=== PATIENT | male | born 1985 | race Hispanic/Latino ===

== ENCOUNTER 2017-02-22 23:38 | Inpatient (IN) | payer MEDICAID, OTHER ==
--- NOTE | 2017-02-22 23:49 | C.PDOC ---
History Of Present Illness A 31 y/o male presents to the ER for heroin detox. Pt notes last use couple hours ago. Pt denies suicidal or homicidal ideation, fever, chills, nausea, vomiting, or any other complaints. Time Seen by Provider: 02/22/17 23:49 Chief Complaint (Nursing): Substance Abuse History Per: Patient History/Exam Limitations: no limitations Onset/Duration Of Symptoms: Hrs Current Symptoms Are (Timing): Still Present Suicide/Self Injury Attempted (Context): None Modifying Factor(s): Other (Heroin) Severity: Mild Associated Symptoms: denies: Suicidal Thoughts, Suicidal Plan Involuntary Hold By: None Recent travel outside of the [place]: No Additional History Per: Patient Past Medical History Reviewed: Historical Data, Nursing Documentation, Vital Signs Vital Signs: Last Vital Signs Temp 98.2 F 02/22/17 23:43 Pulse 84 02/22/17 23:43 Resp 18 02/22/17 23:43 BP 130/86 02/22/17 23:43 Pulse Ox 98 02/22/17 23:54 - Medical History PMH: Denies: Diabetes, Hepatitis, HIV, HTN, Seizures, Sexually Transmitted Disease - [facility] Procedures DETOXIFICATION SERVICES FOR SUBSTANCE ABUSE TREATMENT (09/18/15) Family History: States: Unknown Family Hx - Social History Hx Alcohol Use: Yes Hx Substance Use: Yes - Immunization History Hx Tetanus Toxoid Vaccination: No Hx Influenza Vaccination: No Hx Pneumococcal Vaccination: No Review Of Systems Except As Marked, All Systems Reviewed And Found Negative. Constitutional: Negative for: Fever, Chills Gastrointestinal: Negative for: Nausea, Vomiting Psych: Negative for: Suicidal ideation, Other (Homicidal ideation) Physical Exam - Physical Exam Appears: Non-toxic, No Acute Distress Skin: Warm, Dry Head: Atraumatic, Normacephalic Eye(s): bilateral: Normal Inspection Chest: Symmetrical Cardiovascular: Rhythm Regular Respiratory: No Rales, No Rhonchi, No Wheezing Gastrointestinal/Abdominal: Soft, No Tenderness Extremity: Normal ROM, Capillary Refill (<2sec), No Deformity, No Swelling Neurological/Psych: Oriented x3, Normal Speech, Normal Cognition, Other (No focal deficit) ED Course And Treatment O2 Sat by Pulse Oximetry: 98 (RA) Pulse Ox Interpretation: Normal Disposition Discussed With : Anushka Soria Comment: accepted the pt on his service and took over the care at 2:48 AM Doctor Will See Patient In The: Hospital Counseled Patient/Family Regarding: Studies Performed, Diagnosis - Disposition Disposition: HOSPITALIZED Disposition Time: 23:49 Condition: FAIR - POA Present On Arrival: None - Clinical Impression Clinical Impression: Drug abuse, Drug dependence - Scribe Statement The provider has reviewed the documentation as recorded by the Scribe Navdeep [email or web address] All medical record entries made by the Scribe were at my direction and personally dictated by me. I have reviewed the chart and agree that the record accurately reflects my personal performance of the history, physical exam, medical decision making, and the department course for this patient. I have also personally directed, reviewed, and agree with the discharge instructions and disposition. Decision To Admit - Pt Status Changed To: Hospital Disposition Of: Inpatient - Admit Certification Admit to Inpatient:: After my assessment, the patient will require hospitalization for at least two midnights. This is because of the severity of symptoms shown, intensity of services needed, and/or the medical risk in this patient being treated as an outpatient. - InPatient: Physician Admission Certification: I certify that this patient requires 2 or more midnights of care for the following reason:: After my assessment, the patient will require hospitalization for at least two midnights. This is because of the severity of symptoms shown, intensity of services needed, and/or the medical risk in this patient being treated as an outpatient. - . Bed Request Type: Detox Admitting Physician: Anushka Soria Patient Diagnosis: Drug abuse, Drug dependence
[2017-02-23 01:54] LABS: RBC URINE 1 /hpf (0-3); URINE BILIRUBIN NEGATIVE (NEGATIVE); URINE BLOOD NEGATIVE (NEGATIVE); URINE COLOR Amber (YELLOW); URINE GLUCOSE (UA) NORMAL (Normal); URINE HYALINE CAST 0-2 /lpf (0-2); URINE KETONE TRACE mg/dL (NEGATIVE); URINE LEUKOCYTE ESTERASE NEG Leu/uL (Negative); URINE PROTEIN NEGATIVE (NEGATIVE); WBC URINE 1 /hpf (0-5)
[2017-02-23 02:23] LABS: CHLORIDE 96 mmol/L (98-107)
[2017-02-23 02:24] LABS: POTASSIUM 3.8 mmol/L (3.6-5.2); SODIUM 138 mmol/L (132-148)
[2017-02-23 02:26] LABS: ALB/GLOB RATIO 1.5 (1.0-2.1); ALKALINE PHOSPHATASE 80 U/L (38-126); ALT/SGPT 67 U/L (21-72); AST/SGOT 39 U/L (17-59); BILIRUBIN,TOTAL 0.6 mg/dL (0.2-1.3); BLOOD UREA NITROGEN 15 mg/dL (9-20); CARBON DIOXIDE 26 mmol/L (22-30); GFR AFRICAN-AMERICAN > 60; GLUCOSE,RANDOM 103 mg/dL (75-110); TOTAL PROTEIN 8.2 g/dL (6.3-8.3)
[2017-02-23 02:27] LABS: CALCIUM 9.4 mg/dl (8.6-10.4)
[2017-02-23 08:00] LABS: BASO # 0.1 K/uL (0.0-0.2); BASO % 0.8 % (0.0-2.0); EOS # 0.2 K/uL (0.0-0.7); EOS % 3.5 % (0.0-4.0); HEMATOCRIT 37.7 % (35.0-51.0); LYMPH # 1.9 K/uL (1.0-4.3); LYMPH % 29.9 % (20.0-40.0); MEAN CELL VOLUME 88.2 fL (80.0-94.0); MEAN CORPUSCULAR HEMOGLOBIN 29.8 pg (27.0-31.0); MEAN CORPUSCULAR HGB CONC 33.8 g/dL (33.0-37.0); MEAN PLATELET VOLUME 7.5 fL (7.2-11.7); MONO # 0.5 K/uL (0.0-0.8); MONO % 7.9 % (0.0-10.0); WHITE BLOOD COUNT 6.4 K/uL (4.8-10.8)
[2017-02-23 08:10] LABS: ALCOHOL SERUM < 10 mg/dl (0-10)
[2017-02-23] MEDS ORDERED: Aluminum Hydroxide/Magnesium Hydroxide Susp (30 mL) PO PRN (10:17)
[2017-02-23] MEDS: Multiple Vitamins Tab PO SCH (12:26)
--- NOTE | 2017-02-23 15:23 | PCM.PSYCH ---
Initial Psychiatric Evaluation - Initial Psychiatric Evaluation Type of Admission: Voluntary Legal Status: Capacity Chief Complaint (in patient's own words): "I'm in bad shape. Withdrawing" History of Present Illness and Precipitating Events: The pt is seen, chart reviewed, case discussed with staff. Patient is 31 male. 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 Does not have children and denies legal issues. Patient reports that she has been using heroin, began 10-15 years ago, last used before admitted, and averages 20 bags per day intravenously. Patient uses cocaine, began 10 years ago, last used yesterday, averages $20 a day intravenously. Patient admits to using marijuana, first used years ago, last used a couple of days ago, averages a dime bag every other day. Patient admits to drinking alcohol, began 10 years ago, last drank yesterday, averages 1 pint per day. Denies mushroom, LSD, PCP, any other drugs. Smokes 1 cigarette pack per day since he was 12 years old and requests a nicotine patch. Longest sobriety was for 2 years, and this was about 5 years ago. Denies history of overdose, DT, liver disease. Attended detox at [facility] a couple years ago for 7 days. Patient attended rehab at [facility] in [place] 3 months ago for 2 weeks. Denies ever seeing a psychiatrist in the past. Patient is currently feeling tired and was not able to sleep well and has a poor appetite. Patient denies suicidal and homicidal ideation, auditory and visual hallucinations, paranoid thoughts. Plans after discharge include sober living in [place]. PMH: Denies. Medications: Denies. Allergies: NKDA Psychiatric Hx: Denies. Psychiatric Hospitalization: Denies. Family Psychiatric Hx: Denies. Family Drug Abuse Hx: Denies. Time: 35 minutes Current Medications: Active Medications Generic Name Dose Route Start Last Admin Trade Name Freq PRN Reason Stop Dose Admin Al Hydrox/Mg Hydrox/Simethicone 30 ml 02/23/17 10:17 Maalox 30 Ml PO TID PRN Indigestion / Heartburn Chlordiazepoxide 25 mg 02/23/17 12:00 02/23/17 12:26 Librium PO 02/27/17 11:59 25 mg Q6 JULI Administration Taper Chlordiazepoxide 25 mg 05/17/17 06:38 Librium PO Q4H PRN Alcohol Withdrawal Clonidine HCl 0.1 mg 02/23/17 10:17 Catapres PO Q8 PRN COWS Score More or Equal to 5 Folic Acid 1 mg 02/23/17 10:30 02/23/17 12:26 Folic Acid PO 1 mg DAILY JULI Administration Hydroxyzine HCl 50 mg 02/23/17 10:15 Atarax PO Q6H PRN Anxiety Ibuprofen 600 mg 02/23/17 10:15 Motrin Tab PO Q6H PRN Pain, moderate (4-7) Loperamide HCl 2 mg 02/23/17 10:17 Imodium PO Q8 PRN Diarrhea Multivitamins 1 tab 02/23/17 10:30 02/23/17 12:26 Hexavitamin PO 1 tab DAILY JULI Administration Nicotine 1 patch 02/23/17 10:15 02/23/17 12:26 Nicoderm Cq TD 1 patch DAILY JULI Administration Ondansetron HCl 4 mg 02/23/17 10:17 Zofran Tab PO Q8 PRN Nausea/Vomiting Pneumococcal Polyvalent Vaccine 0.5 ml 02/25/17 10:00 Pneumovax 23 Vaccine IM 02/25/17 10:01 .ONCE ONE Thiamine HCl 100 mg 02/23/17 10:30 02/23/17 12:26 Vitamin B1 Tab PO 100 mg DAILY JULI Administration Trazodone HCl 100 mg 02/23/17 22:00 Desyrel PO HS PRN Insomnia Past Psychiatric History - Past Psychiatric History Previous Treatment History: None Pertinent Medical Hx (Current Medical&Sleep Prob, Allergies): Allergies Allergy/AdvReac Type Severity Reaction Status Date / Time No Known Allergies Allergy Unverified 02/22/17 23:43 No Known Home Med 02/22/17 Review of Systems - Neurological Neurological: UNREMARKABLE - Psychiatric Psychiatric: Abnormal Sleep Pattern, Anxiety, Change in Appetite. absent: Auditory Hallucinations, Hallucinations, Homicidal Ideation, Paranoia, Suicidal Ideation, Visual Hallucinations Mental Status Examination - Personal Presentation Personal Presentation: Looks younger than stated age - Affect Affect: Constricted - Motor Activity Motor Activity: Psychomotor Agitation - Reliability in Providing Information Reliability in Providing Information: Poor, due to altered mood - Speech Speech: Relevant - Mood Mood: Anxious - Formal Thought Process Formal Thought Process: No Impairment - Cognitive Functions Orientation: Person, Place, Situation, Time Sensorium: Drowsy Estimate of Intelligence: Average Judgement: Intact, as evidence by: Insight regarding need for hospitalization Memory: Recent impaired, as evidence by: Inability to recall events of the day, Remote intact, as evidenced by: Abilit to recall sig. life events - Risk Risk: Withdrawal, Diminished functioning - Strength & Assets Inventory Strength & Assets Inventory: Cooperative - Limitations Limitations: Living alone DSM 5 DX - DSM 5 DSM 5 Diagnosis: Opioid withdrawal Opioid Use Disorder - severe Alcohol Use Disorder - severe Cocaine Use Disorder - severe Cannabis Use Disorder - moderate Tobacco Use Disorder - severe - Recommended/Plan of Treatment Treatment Recommendations and Plan of Treatment: Opioid: - Subutex detox - Support and psychoeducation - As needed medications and vitamins - Attend groups and activities - Supportive therapy, individual therapy - WI and CBT for abstinence Alcohol: - Monitor sxs - Support and psychoeducation - As needed medication and vitamins - Attend groups and activities - WI and CBT for abstinence Cocaine: - WI - Support and psychoeducation - Attend groups Marijuana: - WI - Support and psychoeducation - Attend groups Tobacco: - Patch - WI - Support and psychoeducation - Attend groups 33 min Projected ELOS: 4-5 days Prognosis: good with treatment Discharge Plan and Discharge Criteria: no wdw sxs refer to iop or rehab, and MAT - Smoking Cessation Smoking Cessation Initiated: Yes
[2017-02-23] MEDS ORDERED: Buprenorphine Hydrochloride 2 mg SL ONE ×3 (17:16→19:30)
[2017-02-23] MEDS ORDERED: Vitamins A & D Oint UD Foilpak TOP ONE (19:10)
[2017-02-24] MEDS ORDERED: Buprenorphine Hydrochloride 2 mg SL ONE ×2 (11:11)
--- NOTE | 2017-02-24 22:38 | PCM.PYCHPN ---
Psychiatric Progress Note - Psychiatric Progress Note Patient seen today, length of contact: 16 min Patient Chief Complaint: "I'm OK" Problems Identified/Issues Discussed: The pt is seen, chart reviewed, case discussed with staff. The pt is compliant with medications and reports no side-effects. Symptoms are improving but needs more time to stabilize. After care discussed, support and psychoeducation given. PR and CBT used briefly. Medication Change: Yes (detox chgs daily) Medical Record Reviewed: Yes Mental Status Examination - Cognitive Function Orientation: Person, Place, Situation, Time Memory: Intact Attention: WNL Concentration: Poor Association: WNL Fund of Knowledge: WNL - Mood Mood: Anxious - Affect Affect: Constricted - Speech Speech: Appropriate - Formal Thought Process Formal Thought Process: No Impairment - Suicidal Ideation Suicidal Ideation: No - Homicidal Ideation Homicidal Ideation: No Goal/Treatment Plan - Goal/Treatment Plan Need for Continued Stay: Discharge may exacerbated symptoms, Severe functional impairment Progress Toward Problem(s) and Goals/Treatment Plan: Opioid: - Subutex detox - Support and psychoeducation - As needed medications and vitamins - Attend groups and activities - Supportive therapy, individual therapy - PR and CBT for abstinence Alcohol: - Monitor sxs - Support and psychoeducation - As needed medication and vitamins - Attend groups and activities - PR and CBT for abstinence Cocaine: - PR - Support and psychoeducation - Attend groups Marijuana: - PR - Support and psychoeducation - Attend groups Tobacco: - Patch - PR - Support and psychoeducation - Attend groups
[2017-02-25] MEDS ORDERED: Influenza Virus Vaccine 45 mcg/0.5 ml Syr IM ONE (10:00)
[2017-02-25] MEDS ORDERED: Pneumococcal 23-Valent Vaccine IM ONE (10:00)
[2017-02-25] MEDS: Multiple Vitamins Tab PO SCH (11:02)
[2017-02-25] MEDS: Buprenorphine Hydrochloride 2 mg SL SCH (12:10)
--- NOTE | 2017-02-25 15:19 | PCM.PYCHPN ---
Psychiatric Progress Note - Psychiatric Progress Note Patient seen today, length of contact: 17 min Patient Chief Complaint: "So so" Problems Identified/Issues Discussed: The pt is seen, chart reviewed, case discussed with staff. The pt is compliant with medications and reports no side-effects. Symptoms of withdrawal are improving but needs more time to stabilize. After care discussed, support and psychoeducation given. IL and CBT used again Medication Change: Yes (taper) Medical Record Reviewed: Yes Mental Status Examination - Cognitive Function Orientation: Person, Place, Situation, Time Memory: Intact Attention: WNL Concentration: WNL Association: WNL Fund of Knowledge: WNL - Mood Mood: Anxious - Affect Affect: Constricted - Speech Speech: Appropriate - Formal Thought Process Formal Thought Process: No Impairment - Suicidal Ideation Suicidal Ideation: No - Homicidal Ideation Homicidal Ideation: No Goal/Treatment Plan - Goal/Treatment Plan Need for Continued Stay: Discharge may exacerbated symptoms, Severe functional impairment Progress Toward Problem(s) and Goals/Treatment Plan: Opioid: - Subutex detox - Support and psychoeducation - As needed medications and vitamins - Attend groups and activities - Supportive therapy, individual therapy - IL and CBT for abstinence Alcohol: - Monitor sxs - Support and psychoeducation - As needed medication and vitamins - Attend groups and activities - IL and CBT for abstinence Cocaine: - IL - Support and psychoeducation - Attend groups Marijuana: - IL - Support and psychoeducation - Attend groups Tobacco: - Patch - IL - Support and psychoeducation - Attend groups
[2017-02-26] MEDS: Multiple Vitamins Tab PO SCH (12:03)
[2017-02-26] MEDS: Buprenorphine Hydrochloride 2 mg SL SCH (12:04)
--- NOTE | 2017-02-27 01:51 | PCM.PYCHPN ---
Psychiatric Progress Note - Psychiatric Progress Note Patient seen today, length of contact: 19 min Patient Chief Complaint: I am having screwy dreams Problems Identified/Issues Discussed: post acute withdrawal syndrome, withdrawal symptoms from opioids and alcohol aftercare [facility] Medical Problems: nothing acute Diagnostic Results: reviewed DSM 5 Symptoms Update: tremors, restless legs Medication Change: Yes (librium and subutex taper dose changes every day) Medical Record Reviewed: Yes Mental Status Examination - Cognitive Function Orientation: Person, Place, Situation, Time Memory: Intact Attention: WNL Concentration: WNL Association: WNL Fund of Knowledge: WNL - Mood Mood: Anxious - Affect Affect: Constricted - Formal Thought Process Formal Thought Process: No Impairment - Suicidal Ideation Suicidal Ideation: No - Homicidal Ideation Homicidal Ideation: No Goal/Treatment Plan - Goal/Treatment Plan Need for Continued Stay: Remain at risks for inpatient hospitalization, Discharge may exacerbated symptoms Progress Toward Problem(s) and Goals/Treatment Plan: alcohol librium group, milieu and recreational therapy supportive psychotherapy NM CBT opiate use disorder Subutex group milieu and recreational therapy NM CBT supportive psychotherapy acocaine use disorder group milieu recreational therapy NM CBT supportive psychotherapy Estimated Date of D/C: 02/28/17 - Smoking Cessation Smoking Cessation Initiated: Yes
[2017-02-27 06:15] VITALS: PULSE 69
[2017-02-27] MEDS: Multiple Vitamins Tab PO SCH (10:57)
[2017-02-27] MEDS: Buprenorphine Hydrochloride 2 mg SL SCH (10:58)
[2017-02-27 12:26] VITALS: BP 113/71; RESP 16; TEMP 97.7; O2SAT 0
== END 2017-02-27 14:10 | disposition home or self-care (01) | DRG 745 ==
LOC: SUPCPDRO 23:38 → C.ER 23:38 → C.7D 02-23 02:49
PROVIDERS: ADMIT Psychiatry & Neurology Psychiatry; ATTEND Psychiatry & Neurology Psychiatry
PROC: HZ2ZZZZ Detoxification Services for Substance Abuse Treatment (ICD-10-PCS; principal; 2017-02-23)
PROC: HZ59ZZZ Individual Psychotherapy for Substance Abuse Treatment, Supportive (ICD-10-PCS; 2017-02-23)
PROC: HZ46ZZZ Group Counseling for Substance Abuse Treatment, Psychoeducation (ICD-10-PCS; 2017-02-23)
PROC: HZ90ZZZ Pharmacotherapy for Substance Abuse Treatment, Nicotine Replacement (ICD-10-PCS; 2017-02-23)
DX: F11.23 Opioid dependence with withdrawal (principal); F14.20 Cocaine dependence, uncomplicated; F10.20 Alcohol dependence, uncomplicated; F12.10 Cannabis abuse, uncomplicated; F17.210 Nicotine dependence, cigarettes, uncomplicated